=== PATIENT | male | born 1955 | race Caucasian/White ===

== ENCOUNTER 2016-12-03 08:00 | Inpatient (IN) | payer OTHER ==
[2016-12-03] VITALS (10 sets, daily range): BP systolic 94–155; BP diastolic 55–80
[~2016-12-03] VITALS: Ht 180.3 cm; Wt 127.0 kg
[~2016-12-03 08:00] MED LIST: CYCLOBENZAPRINE10 MG PO; HYDROCHLOROTHIA25 MG PO; HYDROCODON-ACE1 EA13 PO; LIPITOR10 MG PO; METOPROLOL SUC100 MG PO; NABUMETONE500 MG PO; OMEPRAZOLE20 M2 PO; QUINAPRIL HCL40 MG PO; ceFAZolin 1gm in D5W 55ml IVP ONE; celeBREX 200mg Cap **SURGERY PATIENTS ONLY ORAL ONE; oxyCONTIN 20mg tab ORAL ONE
[2016-12-03] MEDS ORDERED: PROPAFENONE HC150 MG PO (08:59)
[2016-12-03] MEDS ORDERED: GABAPENTIN300 MG ORAL (08:59)
[2016-12-03] MEDS ORDERED: NUCYNTA100 MG PO (08:59)
[2016-12-03] MEDS ORDERED: celeBREX 200mg Cap **SURGERY PATIENTS ONLY ORAL ONE (11:10)
[2016-12-03] MEDS ORDERED: NS Irrig 1000ml ONE (13:00)
[2016-12-03] MEDS ORDERED: Duramorph PF 10mg/10ml amp EPIDUR ONE (13:00)
[2016-12-03] MEDS ORDERED: Morphine Sulfate 10mg/ml Inj ONE (13:00)
[2016-12-03] MEDS ORDERED: Propofol 200mg/20ml IV ONE (13:00)
[2016-12-03] MEDS ORDERED: Midazolam 2mg/2ml Inj ONE (13:00)
[2016-12-03] MEDS ORDERED: Sterile Water Irrig 1000ml IRRIG ONE (13:00)
[2016-12-03] MEDS ORDERED: LR 1000ml ONE (13:00)
[2016-12-03] MEDS ORDERED: MORPHINE SULFATE ONE (13:03)
[2016-12-03] MEDS ORDERED: Kenalog-40 1ml Vial ONE (13:03)
[2016-12-03] MEDS ORDERED: Lidocaine 1% MPF 10mg/ml 5ml ONE (13:03)
[2016-12-03] MEDS ORDERED: Ketorolac 30mg Inj ONE (13:03)
[2016-12-03] MEDS ORDERED: Bupivacaine 0.25% Inj 30ml INJ ONE (13:03)
[2016-12-03] MEDS ORDERED: NeoSporin Gu Irrig 1ml Amp IRRIG ONE ×2 (13:04→16:33)
[2016-12-03] MEDS ORDERED: Lidocaine 1% 10mg/ml/Epi 0.005mg/ml 30ml vial INJ ONE (13:04)
[2016-12-03] MEDS ORDERED: Bupivacaine 0.5% Inj 30 ml vial INJ ONE (13:04)
[2016-12-03] MEDS ORDERED: Bacitracin 50000 Units Vial ONE ×2 (13:04→16:33)
--- NOTE | 2016-12-03 13:27 | Operative Note - PDOC ---
Operative Note Operative Note Pre-op Diagnosis: left knee arthritis Procedure: left tka Post-op Diagnosis: same as pre-op plus Operative Findings: consistent w/pre-op dx studies Anesthesia: regional Specimen: none Complications: none Condition: stable Estimated Blood Loss: minimal Implant(s) used?: Yes YA SOTO Dec 03, 2016 13:27
--- NOTE | 2016-12-03 13:27 | Pre-Procedure Note/Attestation ---
Pre-Procedure Note/Attestation Complete Prior to Procedure Planned Procedure: left Procedure Narrative: tka Indications for Procedure Pre-Operative Diagnosis: left knee arthritis Attestation I attest that I discussed the nature of the procedure; its benefits; risks and complications; and alternatives (and the risks and benefits of such alternatives ), prior to the procedure, with the patient (or the patient's legal administrative representative). I attest that, if there was a reasonable possibility of needing a blood transfusion, the patient (or the patient's legal administrative representative) was given the [facility] standardized written summary, pursuant to the [place] Blood Safety Act ([place] Health and Safety Code # 1645, as amended). I attest that I re-evaluated the patient just prior to the surgery and that there has been no change in the patient's H&P, except as documented below: YA SOTO Dec 03, 2016 13:27
[2016-12-03] MEDS ORDERED: Norco 7.5mg/325mg tab ORAL PRN (13:30)
[2016-12-03] MEDS ORDERED: Milk of Magnesia 30ml Ud ORAL PRN (13:30)
[2016-12-03] MEDS ORDERED: oxyCODONE 5mg IR tab ORAL PRN ×2 (13:30→23:30)
[2016-12-03] MEDS ORDERED: Norco 5mg/325mg tab ORAL PRN (13:30)
[2016-12-03] MEDS ORDERED: Morphine Sulfate 4mg/ml Inj IVP PRN (13:30)
[2016-12-03] MEDS ORDERED: Morphine Sulfate 2mg/ml Inj IVP PRN ×2 (13:30)
[2016-12-03] MEDS ORDERED: Bupivacaine w/Epi 0.5% 30ml Vial INJ ONE (14:07)
--- NOTE | 2016-12-03 16:33 | Immediate Post-Op Evaluation ---
Immediate Post-Op Evalulation Immediate Post-Op Evalulation Procedure: left TKA Date of Evaluation: Dec 03, 2016 Time of Evaluation: 16:33 Nausea: No Vomiting: No Given Within 1 Hr of Incision: Yes Lo Cummings MD Dec 03, 2016 16:33
--- NOTE | 2016-12-03 16:33 | Anethesia Preoperative Eval ---
Anesthesia Pre-op PMH/ROS General Date of Evaluation: Dec 03, 2016 Time of Evaluation: 12:00 ASA Score: ASA 1 Mallampati Score Class I : Soft palate, uvula, fauces, pillars visible Class II: Soft palate, uvula, fauces visible Class III: Soft palate, base of uvula visible Class IV: Only hard plate visible Mallampati Classification: Class I Anesthesia History: difficult airway Allergies: Coded Allergies: HYDROMORPHONE (Verified Allergy, Severe, 12/03/16) sees flourescent circus animals when eyes are closed Past Medical History Musculoskeletal/Integumentary: Reports: OA Anesthesia Pre-op Phys. Exam Physician Exam Last Vital Signs Date Time Temp Pulse Resp B/P (MAP) Pulse Ox O2 Delivery O2 Flow Rate FiO2 12/03/16 08:50 98.1 60 16 155/80 98 Room Air Airway Exam Mallampati Score: Class I Lo Cummings MD Dec 03, 2016 16:33
[2016-12-03] MEDS ORDERED: Ketorolac 30mg Inj IV PRN (16:45)
[2016-12-03] MEDS: fentaNYL 100 mcg/2 mL IV PRN ×5 (16:52→17:33)
--- NOTE | 2016-12-03 19:13 | 48 Hour Post Anesthesia Eval ---
Post Anesthesia Evaluation Procedure: left TKA Date of Evaluation: Dec 03, 2016 Time of Evaluation: 17:48 Blood Pressure Systolic: 133 0: 71 Pulse Rate: 73 Respiratory Rate: 18 Temperature (Fahrenheit): 97.3 O2 Sat by Pulse Oximetry: 98 Airway: patent Nausea: No Vomiting: No Pain Intensity: 3 Hydration Status: adequate Cardiopulmonary Status: Stable Mental Status/LOC: patient returned to baseline Follow-up Care/Observations: 0 Post-Anesthesia Complications: 0 Follow-up care needed: N/A Gumaro Wise MD Dec 03, 2016 19:13
[2016-12-03] MEDS: Acetaminophen 500mg (ES) tab ORAL SCH (19:28)
[2016-12-03] MEDS ORDERED: PCA Education Pamphlet MISC ONE (20:00)
[2016-12-03] MEDS ORDERED: Rate Change PCA 1 Each MISC PRN (20:00)
[2016-12-03] MEDS: D5 1/2NS w/KCl 20mEq 1,000 ML IV SCH (20:19)
[2016-12-03] MEDS: PCA Morphine 1mg/ml 30 ML IV PRN (21:31)
[2016-12-03] MEDS: Docusate 100mg cap ORAL SCH (21:38)
[2016-12-03] MEDS: oxyCONTIN 20mg tab ORAL SCH (23:07)
[2016-12-03] MEDS: ceFAZolin sod 2 GM in D5W 110 ML IV SCH (23:32)
[2016-12-04] VITALS (7 sets, daily range): BP systolic 105–163; BP diastolic 56–81
[2016-12-04] MEDS: PCA Morphine 1mg/ml 30 ML IV PRN ×3 (00:55→15:18)
[2016-12-04] MEDS ORDERED: Norco 5mg/325mg tab ORAL PRN (01:30)
[2016-12-04] MEDS ORDERED: Morphine Sulfate 2mg/ml Inj IVP PRN ×3 (01:30→05:45)
[2016-12-04] MEDS ORDERED: Morphine Sulfate 4mg/ml Inj IVP PRN (01:30)
[2016-12-04] MEDS ORDERED: Norco 7.5mg/325mg tab ORAL PRN (01:30)
--- NOTE | 2016-12-04 04:00 | Operative Note - Dictated ---
DATE OF OPERATION: 12/03/2016 PREOPERATIVE DIAGNOSES: 1. Left knee osteoarthritis. 2. BMI over 35. POSTOPERATIVE DIAGNOSES: 1. Left knee osteoarthritis. 2. BMI over 35. Procedure: Left total knee arthroplasty complicated secondary to BMI of over 35. SURGEON: Chandra Piña M.D. ANESTHESIA: General. Indication For Procedure: The patient is a 61-year-old gentleman with progressive left knee osteoarthritis. He was indicated for operative fixation. Risks, limitations, expectations, and complications of the procedure were discussed in detail. All questions addressed. Description Of Procedure: An informed consent was obtained. The patient was taken to the operating room. The patient was placed under general anesthesia. Tourniquet was applied to the left proximal thigh. Left leg was prepped and draped in a sterile manner. Time-out was performed. An Esmarch was used to exsanguinate the extremity. Anterior skin incision was then made. Subvastus arthrotomy was performed. Distal femur was well visualized. Distal femoral cutting block was placed and distal femur was resected. Posterior anterior sizing guide was then placed, which measured the femur to a size #7. A size #7 cutting block was placed and the anterior and posterior chamfer cuts were then made. The proximal tibia was well visualized. External tibial cutting guide was then used to cut the proximal tibia. A size #7 tibial tray was selected. The 9 mm seemed very tight in extension and flexion. Therefore, an additional 2 mm was resected off the proximal tibia. A tibial base plate was then used and reduced with a 9 mm insert. The knee came out to full extension, good stability with full extension, 10 degrees of flexion and 90 degrees of flexion. Good tracking of the patella. Once that was done, the tibial base plate was appropriately externally rotated, and keel punch was then prepared. The patella was everted and measured 26 mm. Freehand resection of the patella was performed. A 36 mm patellar component was selected, it was calibrated to 24 mm. At this point, Betadine was placed into the wound. Periarticular injection of 0.25% Marcaine, 40 mg of Kenalog, Duramorph, and Toradol was injected into the periarticular tissues. Once the Betadine was removed, the bone edges were soaked in 0.25% Marcaine with epinephrine. At this point, cement was prepared. Implants were impacted into place. Excess cement was removed. At this point, the arthrotomy site was closed with #1 Vicryl suture, 2-0 Vicryl suture, and 3-0 Monocryl suture. Steri-Strips and a sterile dressing were applied. The patient was awoken and taken to recovery room with stable vital signs. ESTIMATED BLOOD LOSS: Minimal. COMPLICATIONS: None. SPECIMENS: Include multiple bone cuts. Implants: Include Denice size #7 femur, size #7 tibial tray, a 9 mm tibial insert, and 36 mm patellar component. Chandra Piña M.D. DR: Brandy JOB#: [id number] CC:
[2016-12-04] MEDS ORDERED: Morphine Sulfate 4mg/ml Inj IM PRN (04:45)
--- NOTE | 2016-12-04 05:56 | General Progress Note ---
Assessment/Plan Assessment/Plan OA TKA Hypertension dysrythmia PLAN 1. incentive spirometry, resume home meds 2. Lovenox 3. PT evaluation and therapy 4. Hydration and monitor UO 5. Pain management 6. discharge once stable with outpatient follow up Subjective Allergies: Coded Allergies: HYDROMORPHONE (Verified Allergy, Severe, 12/03/16) sees flourescent circus animals when eyes are closed Subjective asked to followup postop stable reduced UO noted Objective Last 24 Hour Vital Signs Date Time Temp Pulse Resp B/P (MAP) Pulse Ox O2 Delivery O2 Flow Rate FiO2 12/04/16 03:48 18 12/04/16 02:24 97.3 12/04/16 01:25 97.3 12/04/16 00:55 18 12/04/16 00:00 18 12/04/16 00:00 97.5 56 18 118/56 97 Room Air 12/03/16 23:08 18 12/03/16 22:38 18 12/03/16 22:27 18 12/03/16 22:05 18 12/03/16 21:46 18 12/03/16 21:31 18 12/03/16 20:27 97.3 12/03/16 20:00 97.5 62 18 135/72 100 Nasal Cannula 3.0 12/03/16 19:13 73 18 98 12/03/16 17:53 97.3 12/03/16 17:45 97.3 73 18 133/71 98 Nasal Cannula 3.0 12/03/16 17:30 72 18 134/72 98 Nasal Cannula 3.0 12/03/16 17:22 98.1 12/03/16 17:15 70 18 137/71 98 Nasal Cannula 3.0 12/03/16 17:00 69 18 133/75 98 Nasal Cannula 3.0 12/03/16 16:50 70 19 126/67 100 Simple Mask 6.0 12/03/16 16:40 75 20 132/65 100 Simple Mask 6.0 12/03/16 16:35 74 19 98/60 99 Simple Mask 6.0 12/03/16 16:30 97.2 76 18 94/55 99 Simple Mask 6.0 12/03/16 08:50 98.1 60 16 155/80 98 Room Air Height (Feet): 5 Height (Inches): 11.00 Weight (Pounds): 280 Objective WDWN NAD clear breath sounds bilaterally without rhonchi or wheeze [id number] without MRG NABS nontender no HSM no CCE nonfocal SHIRA SO Dec 04, 2016 05:56
[2016-12-04 06:58] LABS: BASOPHILS % (AUTO) 0.3 % (0.0-2.0); EOSINOPHILS % (AUTO) 0.2 % (0.0-3.0); LYMPHOCYTES % (AUTO) 6.5 % (20.0-45.0); MEAN CORPUSCULAR HEMOGLOBIN 35.3 PG (27.0-31.0); MEAN CORPUSCULAR HGB CONC 35.6 G/DL (32.0-36.0); MEAN CORPUSCULAR VOLUME 99 FL (80-99); MEAN PLATELET VOLUME 7.3 FL (6.5-10.1); MONOCYTES % (AUTO) 9.2 % (1.0-10.0); NEUTROPHILS % (AUTO) 83.8 % (45.0-75.0); PLATELET COUNT 186 K/UL (150-450); RED BLOOD COUNT 3.56 M/UL (4.70-6.10); WHITE BLOOD COUNT 9.1 K/UL (4.8-10.8)
[2016-12-04] MEDS: PCA shift volume MISC SCH ×2 (07:00→19:06)
[2016-12-04] MEDS: celeBREX 200mg Cap **SURGERY PATIENTS ONLY ORAL SCH (08:12)
[2016-12-04] MEDS: oxyCONTIN 20mg tab ORAL SCH ×2 (08:13→20:41)
[2016-12-04] MEDS: Docusate 100mg cap ORAL SCH ×3 (08:15→17:17)
[2016-12-04] MEDS: Acetaminophen 500mg (ES) tab ORAL SCH ×3 (08:15→17:18)
[2016-12-04] MEDS: ceFAZolin sod 2 GM in D5W 110 ML IV SCH (08:19)
[2016-12-04] MEDS: D5 1/2NS w/KCl 20mEq 1,000 ML IV SCH ×3 (08:20→22:35)
[2016-12-04] MEDS: Atorvastatin 20mg tab ORAL SCH (09:00)
[2016-12-04] MEDS: Metoprolol Succinate XL 100mg tab ORAL SCH (09:19)
--- NOTE | 2016-12-04 09:36 | Diagnostic Imaging Report ---
Indication: Postoperative pain Technique: XRAY KNEE THREE VIEWS LEFT Comparison: None Findings: There is a left total knee arthroplasty with satisfactory alignment. Operative soft tissue changes are present. Atherosclerotic changes are noted. Impression: Status post left total knee arthroplasty.
[2016-12-04] MEDS ORDERED: Morphine Sulfate 4mg/ml Inj SUBQ PRN (10:45)
[2016-12-04] MEDS ORDERED: Tubing IV Secondary IV ONE (17:41)
[2016-12-05] VITALS: BP 145/78
[2016-12-05 04:00] VITALS: BP 144/79
[2016-12-05] MEDS: PCA shift volume MISC SCH (07:10)
[2016-12-05] MEDS: PCA Morphine 1mg/ml 30 ML IV PRN (07:50)
[2016-12-05 08:00] VITALS: BP 131/61
--- NOTE | 2016-12-05 08:39 | General Progress Note ---
Assessment/Plan Assessment/Plan OA TKA Hypertension dysrythmia PLAN 1. incentive spirometry, resume home meds 2. Lovenox 3. PT evaluation and therapy 4. Hydration and monitor UO 5. Pain management 6. discharge today if stable Subjective Allergies: Coded Allergies: HYDROMORPHONE (Verified Allergy, Severe, 12/03/16) sees flourescent circus animals when eyes are closed Subjective has pain able to ambulate no distress Objective Last 24 Hour Vital Signs Date Time Temp Pulse Resp B/P (MAP) Pulse Ox O2 Delivery O2 Flow Rate FiO2 12/05/16 08:00 18 12/05/16 08:00 98.5 63 20 131/61 97 Room Air 12/05/16 04:00 18 12/05/16 04:00 98.8 75 20 144/79 95 Room Air 12/05/16 00:00 97.9 67 20 145/78 Room Air 12/04/16 23:54 18 12/04/16 20:40 71 12/04/16 20:00 16 12/04/16 20:00 97.9 74 20 146/76 94 Room Air 12/04/16 16:48 97.6 12/04/16 16:00 97.4 71 18 163/81 95 Room Air 12/04/16 15:29 18 12/04/16 15:25 18 12/04/16 14:20 97.6 12/04/16 12:00 98.4 70 18 108/64 94 Room Air 12/04/16 12:00 18 12/04/16 09:22 74 146/75 12/04/16 09:19 74 146/75 12/04/16 08:40 18 12/04/16 08:39 18 Height (Feet): 5 Height (Inches): 11.00 Weight (Pounds): 280 Objective WDWN NAD clear breath sounds bilaterally without rhonchi or wheeze [id number] without MRG NABS nontender no HSM no CCE nonfocal SHIRA SO Dec 05, 2016 08:39
[2016-12-05] MEDS: Metoprolol Succinate XL 100mg tab ORAL SCH (08:47)
[2016-12-05] MEDS: Atorvastatin 20mg tab ORAL SCH (08:48)
[2016-12-05] MEDS: Docusate 100mg cap ORAL SCH ×3 (08:48→17:10)
[2016-12-05] MEDS: celeBREX 200mg Cap **SURGERY PATIENTS ONLY ORAL SCH (08:50)
[2016-12-05] MEDS: oxyCONTIN 20mg tab ORAL SCH ×2 (08:50→20:42)
[2016-12-05] MEDS: Acetaminophen 500mg (ES) tab ORAL SCH ×3 (09:01→17:10)
[2016-12-05] MEDS: D5 1/2NS w/KCl 20mEq 1,000 ML IV SCH ×2 (11:30→16:55)
[2016-12-05 12:40] VITALS: BP 148/77
[2016-12-05 16:00] VITALS: BP 129/69
[2016-12-05 20:00] VITALS: BP 134/73
[2016-12-05] MEDS ORDERED: Morphine Sulfate 2mg/ml Inj IVP PRN ×2 (20:00)
[2016-12-05] MEDS ORDERED: Morphine Sulfate 4mg/ml Inj IVP PRN (20:00)
[2016-12-05] MEDS ORDERED: oxyCODONE 5mg IR tab ORAL PRN (20:00)
[2016-12-06] VITALS: BP 129/66
[2016-12-06] MEDS: D5 1/2NS w/KCl 20mEq 1,000 ML IV SCH ×2 (00:50→05:17)
[2016-12-06 04:30] VITALS: BP 148/82
[2016-12-06 08:00] VITALS: BP 150/75
--- NOTE | 2016-12-06 08:34 | General Progress Note ---
Assessment/Plan Assessment/Plan OA TKA Hypertension dysrythmia PLAN 1. incentive spirometry, resume home meds 2. Lovenox...aspirin on discharge 3. PT evaluation and therapy 4. Hydration and monitor UO 5. Pain management 6. discharge today pending venous US Subjective Allergies: Coded Allergies: HYDROMORPHONE (Verified Allergy, Severe, 12/03/16) sees flourescent circus animals when eyes are closed Subjective has pain able to ambulate no distress duplex ordered dc held yesterday Objective Last 24 Hour Vital Signs Date Time Temp Pulse Resp B/P (MAP) Pulse Ox O2 Delivery O2 Flow Rate FiO2 12/06/16 04:30 97.6 60 18 148/82 97 Room Air 12/06/16 00:00 98.7 79 18 129/66 96 Room Air 12/05/16 21:41 97.9 12/05/16 20:42 73 12/05/16 20:00 97.3 73 18 134/73 96 Room Air 12/05/16 16:00 97.9 63 20 129/69 97 Room Air 12/05/16 15:30 18 12/05/16 12:40 98.2 65 20 148/77 97 Room Air 12/05/16 12:00 18 12/05/16 08:47 63 12/05/16 08:47 63 131/61 Height (Feet): 5 Height (Inches): 11.00 Weight (Pounds): 280 Objective WDWN NAD clear breath sounds bilaterally without rhonchi or wheeze [id number] without MRG NABS nontender no HSM no CCE nonfocal SHIRA SO Dec 06, 2016 08:34
[2016-12-06] MEDS: Docusate 100mg cap ORAL SCH (09:02)
[2016-12-06] MEDS: Atorvastatin 20mg tab ORAL SCH (09:02)
[2016-12-06 09:04] VITALS: BP 150/75
[2016-12-06] MEDS: Metoprolol Succinate XL 100mg tab ORAL SCH (09:04)
[2016-12-06] MEDS: celeBREX 200mg Cap **SURGERY PATIENTS ONLY ORAL SCH (09:05)
[2016-12-06] MEDS: Acetaminophen 500mg (ES) tab ORAL SCH (10:02)
[2016-12-06] MEDS: oxyCONTIN 20mg tab ORAL SCH (10:04)
[2016-12-06] MEDS ORDERED: PERCOCET 10-321 EACH ORAL (11:05)
[2016-12-06] MEDS ORDERED: ASPIRIN325 MG ORAL (11:08)
[2016-12-06] MEDS ORDERED: BENADRYL25 MG ORAL (11:10)
--- NOTE | 2016-12-06 12:50 | Diagnostic Imaging Report ---
APPROVED REPORT CPT Code: 04190 Present Symptoms Comments: Post Op left knee Pain BILATERAL: Imaging reveals a patent deep venous system bilaterally. There is no evidence of thrombus within the femoral, popliteal or tibial segments. The greater saphenous veins are also within normal limits. Doppler indicates normal spontaneous flow within these segments.
--- NOTE | 2016-12-06 22:30 | Progress Note ---
DATE: 12/06/2016 Subjective: The patient is postop day #3, status post left total knee arthroplasty. He is actually doing relatively well. He still has some localized pain in the medial aspect of the knee. He reports that the leg is swollen. He is tolerating p.o. He is off the LSW. Physical Examination: Shows the incision is clean, dry, and intact. Has +1 pitting edema. Posterior calf is soft. Neurovascular exam is normal. IMAGING STUDIES: Show the implant in good position. ASSESSMENT: Status post left total knee arthroplasty. Discussion: At this point, the swelling is kind of expected with some oozing that is expected postoperatively. We will continue elevation as well as the SCDs. We will get a lower extremity ultrasound to make sure he does not have a blood clot. We are going to maintain on aspirin for DVT prophylaxis, and given the risk of bleeding, infection, risks, limitations, expectations, and complications related to prophylactic DVT treatment discussed with the patient. Signs and symptoms to monitor for were discussed with the patient. If he has a normal ultrasound and he is ambulating with physical therapy, then he can be discharged home later on today. Chandra Piña M.D. DR: MEL JOB#: [id number] CC:
--- NOTE | 2016-12-07 15:09 | Discharge Summary ---
Discharge Summary Hospital Course Date of Admission Dec 03, 2016 at 08:00 Date of Discharge Dec 06, 2016 at 12:30 Admitting Diagnosis left knee osteoarthritis Reason for Hospitalization: elective surgery HPI Jevon Villanueva is a 61 year old male who was admitted on Dec 03, 2016 at 08:00 for Lt Knee Osteoarthritis and elective surgery Procedures s/p 12/[address] Piña Left total knee arthroplasty complicated secondary to BMI of over 35. Hospital Course s/p surgery course of recovery uneventful pain management initially IVF UO monitored closely dressing C/D/I neurovascular intact IS at the bedside, encourage to use PT eval and Rx, ambulated DVT prophylaxis Venous Duplex BLE negative stable for dc outpt fup with surgeon FINAL DIAGNOSIS left knee osteoarthritis s/p total left knee arthroplasty morbid obesity HTN Discharge Medications Continued Medications: Atorvastatin Calcium* (Lipitor*) 10 Mg Tablet 20 MG PO DAILY, #10 TAB Gabapentin* (Gabapentin*) 300 Mg Capsule 300 MG ORAL TWICE A DAY, CAP Hydrochlorothiazide* (Hydrochlorothiazide*) 25 Mg Tablet 25 MG PO DAILY, #30 TAB Metoprolol Succinate* (Metoprolol Succinate*) 100 Mg Tab.er.24h 100 MG PO DAILY, #30 TAB Do not chew or crush tablet Propafenone Hcl* (Rhythmol*) 150 Mg Tablet 150 MG PO TWICE A DAY, TAB Quinapril Hcl (Quinapril Hcl) 40 Mg Tablet 40 MG PO DAILY Tapentadol Hcl (Nucynta) 100 Mg Tablet 150 MG PO TWICE A DAY, TAB Discharge Condition Upon Discharge: stable Discharge Disposition Patient was discharged to Home (01) Discharge Diagnoses: Discharge Instructions Discharge Instructions Special Instructions I have been assigned to complete a D/C Summary on this account. I was not involved in the patient management Sherry Garces NP ([place]) Dec 07, 2016 15:09
== END 2016-12-06 12:30 | disposition home or self-care (01) | DRG 470 ==
LOC: SDSOVERFLO 08:00 → 3E 18:21
PROC: 0SRD0J9 Replacement of Left Knee Joint with Synthetic Substitute, Cemented, Open Approach (ICD-10-PCS; principal; 2016-12-03 11:45)
DX: M17.12 Unilateral primary osteoarthritis, left knee (principal); E66.01 Morbid (severe) obesity due to excess calories; I10 Essential (primary) hypertension; W19.XXXS Unspecified fall, sequela; I48.0 Paroxysmal atrial fibrillation; Z68.39 Body mass index [BMI] 39.0-39.9, adult
CPT/HCPCS: 36415; 85025; 86850; 86900; 86901; 87081; 93970; 94003; 94150; J2250; J2405